=== PATIENT | male | born 1965 | race Caucasian/White ===

== ENCOUNTER 2023-04-15 02:00 | Inpatient (IN) | payer OTHER ==
[2023-04-15] VITALS (8 sets, daily range): BP systolic 45–221; BP diastolic 35–112
[~2023-04-15] VITALS: Ht 172.7 cm; Wt 68.0 kg
[2023-04-15 02:22] LABS: Base Excess Venous -22.3 mmol/L; Bicarbonate Venous 8.3 mmol/L (24.0-30.0); PCO2 Venous 80.8 mmHg (38-42)
[2023-04-15 02:23] LABS: pH Blood Venous <6.80 (7.34-7.37)
[2023-04-15 02:26] LABS: BASOPHILS ABSOLUTE AUTO 0.08 K/mm3 (0.00-0.23); BASOPHILS PERCENT AUTO 0 % (0-2); EOSINOPHILS ABSOLUTE AUTO 0.01 K/mm3 (0.00-0.68); EOSINOPHILS PERCENT AUTO 0 % (0-6); Hematocrit 40.7 % (37.0-53.0); Hemoglobin 12.4 g/dL (13.5-17.5); Mean Corpuscular HGB 33.4 pg (26.0-34.0); Mean Corpuscular HGB Conc 30.5 g/dL (31.5-36.5); Mean Corpuscular Volume 110 fL (80-100); Mean Platelet Volume 11.6 fL (9.1-12.4); NRBC ABSOLUTE 0.03 K/mm3 (0.00-0.02); NRBC Auto 0.1 /100 WBC (0.0-0.2); Platelet Count 294 K/mm3 (150-400); RDW Coefficient Variation 15.4 % (11.7-14.2); RDW Standard Deviation 60.4 fL (35.1-46.3); Red Blood Cell Count 3.71 M/mm3 (4.30-5.90); White Blood Cell Count 20.68 K/mm3 (4.00-11.30)
[2023-04-15 02:27] LABS: IMMATURE GRAN ABSOLUTE AUTO 0.74 K/mm3 (0.00-0.10); IMMATURE GRAN PERCENT AUTO 4 % (0-1); LYMPHOCYTES ABSOLUTE AUTO 7.72 K/mm3 (0.84-5.20); LYMPHOCYTES PERCENT AUTO 37 % (21-46); MONOCYTES ABSOLUTE AUTO 2.01 K/mm3 (0.16-1.47); MONOCYTES PERCENT AUTO 10 % (4-13); NEUTROPHILS ABSOLUTE AUTO 10.12 K/mm3 (1.96-9.15); NEUTROPHILS PERCENT AUTO 49 % (41-73)
[2023-04-15 02:40] LABS: International Normalized Ratio 1.1; Prothrombin Time Results 11.5 Sec (9.7-11.5)
[2023-04-15 02:44] LABS: Magnesium, Blood 2.4 mg/dL (1.6-2.4)
[2023-04-15 02:55] LABS: Albumin/Globulin Ratio 0.8 (0.8-1.8); Bilirubin, Total 0.2 mg/dL (0.1-1.0); Bun/Creatinine Ratio 28.3 (12.0-20.0); Calcium, Blood 9.1 mg/dL (8.5-10.1); Creatinine, Blood 1.13 mg/dL (0.60-1.20); Globulin, Blood 3.7 g/dL (2.2-4.0); Potassium, Blood 4.2 mmol/L (3.5-5.5); Total Protein, Blood 6.7 g/dL (6.4-8.2)
[2023-04-15 04:38] LABS: Source, Urine Foley catheter
[2023-04-15 04:43] LABS: Bilirubin, Urine Neg (Neg); Blood, Urine 5+ (Neg); Glucose Qualitative, Urine 4+ (Neg); Ketones, Urine Neg (Neg); Leukocyte Esterase, Urine Neg (Neg); Nitrite, Urine Neg (Neg); Protein, Urine 3+ (Neg); Urobilinogen, Urine NORM (Normal)
[2023-04-15 05:03] LABS: Amorphous Light (0-Heavy); Appearance, Urine Hazy (Clear); Bacteria Few /hpf; Color, Urine Yellow (P-Yellow); Red Blood Cells, Urine 25-50 /hpf (0-2); Spermatozoa Few /hpf; Squamous Epithelial Cells Few /hpf (Few); White Blood Cells, Urine 0-2 /hpf (0-5)
[2023-04-15 05:09] LABS: Hematocrit 44.3 % (37.0-53.0); Hemoglobin 14.1 g/dL (13.5-17.5)
[2023-04-15] MEDS ORDERED: HYDHCL25 PO (06:41)
[2023-04-15] MEDS ORDERED: OXYC10TA19 PO (06:42)
[2023-04-15] MEDS ORDERED: XARELTO20 MG PO (06:43)
[2023-04-15] MEDS ORDERED: CLOP75 PO (06:43)
[2023-04-15] MEDS ORDERED: LOSA25 PO (06:44)
[2023-04-15] MEDS ORDERED: Zofran8 MG PO (06:45)
[2023-04-15] MEDS ORDERED: DECADRON4 M1 PO (06:45)
[2023-04-15] MEDS ORDERED: BIKTARVY 50-201 EAC1 PO (06:46)
[2023-04-15] MEDS ORDERED: BASAGLAR K100 UNIT/1 (06:47)
[2023-04-15 08:51] LABS: Bun/Creatinine Ratio 35.5 (12.0-20.0); Calcium, Blood 8.2 mg/dL (8.5-10.1); Creatinine, Blood 1.07 mg/dL (0.60-1.20); Potassium, Blood 5.5 mmol/L (3.5-5.5)
[2023-04-15 08:56] LABS: Base Excess Venous -9.5 mmol/L; Bicarbonate Venous 16.5 mmol/L (24.0-30.0); PCO2 Venous 58.7 mmHg (38-42); pH Blood Venous 7.13 (7.34-7.37)
[2023-04-15 10:03] LABS: Bun/Creatinine Ratio 33.3 (12.0-20.0); Calcium, Blood 8.1 mg/dL (8.5-10.1); Creatinine, Blood 1.14 mg/dL (0.60-1.20); Potassium, Blood 5.9 mmol/L (3.5-5.5)
[2023-04-15 10:20] LABS: Calcium, Ionized (POC) 1.11 mmol/L (1.10-1.46); Chloride (POC) 111 mmol/L (98-108); Creatinine (POC) 1.7 mg/dL (0.8-1.3); Glucose (ISTAT POC) 176 mg/dL (70-99); Potassium (POC) 5.7 mmol/L (3.5-5.5); Sodium (POC) 135 mmol/L (135-148); Total CO2 (POC) 19 mmol/L (21-32)
[2023-04-15 11:08] LABS: Hemoglobin 14.3 g/dL (13.5-17.5)
--- NOTE | 2023-04-15 14:24 | NUR ---
PT ARRIVAL.... PT CAME TO THE UNIT AT 1209, HE WAS INTUBATED ON PROPOFOL AT 80MCG AND FENTANYL DRIP AT 10MCG/HR. THIS WAS STOPPED TO ASSESS THE PT'S NEURO STATUS ON ADMIT. PT WAS IN SINUS TACH IN THE 130'S HE WAS HYPERTENSIVE WITH SBPs IN THE 200'S DBPs 90'S-120'S. NO COUGH OR GAG WAS NOTED ON THIS ASSESSMENT, PUPILS WERE 3MM AND FIXED. PT DID NOT RESPOND TO ANY PAINFUL STIMULI. ET TUBE WAS 8.0 AND 27 AT THE TEETH. L/S COARSE T/O. BRYAN RED BLOOD IS NOTED IN THE ET TUBE SUCTION LINE, OG TUBE IS SET TO WALL SUCTION WITH BLACK GASTRIC CONTENTS NOTED IN THE LINE. BT NOT HEARD ON THIS ASSESSMENT, ABD HAD MODERATE DISTENTION AND WAS FIRM TO PALPATION. TEMP STEPHENS IN PLACE DRAINING DEMI URINE TO GRAVITY. TEMP ON ARRIVAL WAS 99.6. THE PT WAS MADE A DNR DURING THIS TIME. ONCE THE SEDATION WORE OFF THE PT'S RR INCREASED FROM THE 20'S TO THE 30'S WITH ACCESSORY MUSCLE USE NOTED ("GUPPY BREATHING"). THE PT'S PUPILS CONTINUED TO BE 3MM FIXED NOW WITH AN UPWARD GAZE TO THE LEFT. STILL NO COUGH OR GAG NOTED. A LABETOLOL DRIP WAS STARTED AT 1MG/MIN PER ORDERS D/T SEVERE HYPERTENSION 200'S-100'S. THIS RAN 5MINS WHEN A BP RECHECK SHOWED THE PT'S BP WAS 112/84. THE LABETOLOL DRIP WAS STOPPED AT THIS TIME PER PROVIDER WHO WAS AT THE BEDSIDE. THE PT'S HR THEN DROPPED INTO THE 60'S. THE PT'S PUPILS AT THIS TIME BECAME UNEQUAL WITH THE LEFT PUPIL AT A 6MM AND THE RIGHT AT A 3MM. THE PT'S BP CONTINUED TO TREND DOWN ALONG WITH THE PT'S HR FROM THE 60'S DOWN TO THE 40'S. A LEVOPHED DRIP WAS STARTED PER ORDERS. 1 AMP OF EPI WAS GIVEN PER DR. GREGG WHICH DID NOT IMPROVE THE PT'S HR OR BP DURING THIS TIME. THE PT'S HR CONTINUED TO MICHELLE DOWN UNTIL HE . TIME OF WAS CALLED BY DR. GREGG AT 1335. THE PT'S FAMILY WAS NOTIFIED BY THE PROVIDER.
== END 2023-04-15 13:35 | DRG 296 ==
LOC: EDBD 02:00 → ER 02:00 → ICUE 11:28
PROVIDERS: Student in an Organized Health Care Education/Training Program; ADMIT Family Medicine
PROC: 5A1935Z Respiratory Ventilation, Less than 24 Consecutive Hours (ICD-10-PCS; principal; 2023-04-15)
PROC: 30233N1 Transfusion of Nonautologous Red Blood Cells into Peripheral Vein, Percutaneous Approach (ICD-10-PCS; principal; 2023-04-15)
PROC: 3E033XZ Introduction of Vasopressor into Peripheral Vein, Percutaneous Approach (ICD-10-PCS; principal; 2023-04-15)
DX: I46.9 Cardiac arrest, cause unspecified (principal); E11.11 Type 2 diabetes mellitus with ketoacidosis with coma; K22.3 Perforation of esophagus; I16.1 Hypertensive emergency; C34.90 Malignant neoplasm of unspecified part of unspecified bronchus or lung; C79.31 Secondary malignant neoplasm of brain; K55.1 Chronic vascular disorders of intestine; E87.4 Mixed disorder of acid-base balance; Z51.5 Encounter for palliative care; Z66 Do not resuscitate; Z21 Asymptomatic human immunodeficiency virus [HIV] infection status; I25.10 Atherosclerotic heart disease of native coronary artery without angina pectoris; D64.9 Anemia, unspecified; E87.5 Hyperkalemia; I16.0 Hypertensive urgency; E11.51 Type 2 diabetes mellitus with diabetic peripheral angiopathy without gangrene; I69.312 Visuospatial deficit and spatial neglect following cerebral infarction; Z95.1 Presence of aortocoronary bypass graft; Z79.01 Long term (current) use of anticoagulants; Z79.4 Long term (current) use of insulin; I25.2 Old myocardial infarction; Z87.891 Personal history of nicotine dependence; Z79.52 Long term (current) use of systemic steroids; Z79.02 Long term (current) use of antithrombotics/antiplatelets; Z79.891 Long term (current) use of opiate analgesic; Z79.899 Other long term (current) drug therapy
CPT/HCPCS: 36415; 36430; 51702; 70450; 71045; 71275; 74174; 80047; 80048; 80053; 81001; 82803; 82947; 83605; 83735; 84484; 85014; 85018; 85025; 85610; 86850; 86900; 86901; 86920; 87040; 93005; 93010; 94002; 96365; 96366; 96367; 96368; 96375; 96376; 99291-25; 99292; A9270; C9113; J0692; J2704; J3010; J3370; J3480; J7030; J7050; J7060; P9016; Q9967